=== PATIENT | male | born 1985 ===

== ENCOUNTER 2024-03-15 13:06 | Emergency (ER) | payer BC, SELFPAY ==
[2024-03-15] VITALS (27 sets, daily range): BP systolic 108–147; BP diastolic 48–108; PULSE 98–120; RESP 16–20; TEMP 36.1; O2SAT 89–96; BMI 35.6
[2024-03-15] MEDS: KETOROLAC 15 MG/ML inj IVP (15:16)
[2024-03-15] MEDS: 0.9 % SODIUM CHLORIDE 500 ML 500 ML IV (15:16)
[2024-03-15] MEDS: LORazepam 2 MG/ML inj 1 MG IVP (15:17)
[2024-03-15 15:29] LABS: Glucose, Point-of-Care* 113 mg/dl (60-115)
[2024-03-15 15:37] LABS: Chloride* 98 mmol/L (96-114); Sodium* 137 mmol/L (135-149)
[2024-03-15 15:38] LABS: Albumin* 5.2 g/dL (3.3-5.0); Basophils Percent Auto 0.5 % (0.0-3.0); Eosinophils Percent Auto 1.7 % (0.0-7.0); Hematocrit 48.4 % (37.0-53.0); Immature Granulocytes Pct Auto 1.5 %; Mean Corpuscular HGB Conc 33 gm/dL (32-36); Mean Corpuscular Hemoglobin 27 pg (26-34); Mean Corpuscular Volume 81 fL (80-100); Monocytes Percent Auto 7.6 % (0.0-11.0); Neutrophils Percent Auto 70.7 % (42.0-72.0); Platelet Count* 412 K/uL (140-440); RDW Coefficient of Variation % 13.2 % (11.5-15.5); Red Blood Count 5.96 m/uL (4.30-5.90); White Blood Count* 12.59 K/uL (4.50-11.00)
[2024-03-15 15:39] LABS: Potassium* 4.3 mmol/L (3.6-5.1)
[2024-03-15 15:41] LABS: Alkaline Phosphatase* 101 U/L (40-150); Anion Gap 14 mEq/L (7-15); Aspartate Amino Transferase* 39 U/L (12-35); Bilirubin Direct* 0.4 mg/dL (0.0-0.5); Bilirubin Total* 1.3 mg/dL (0.1-1.5); Blood Urea Nitrogen* 18 mg/dL (5-24); Carbon Dioxide* 25 mmol/L (20-32); Est. Creatinine Clearance* 110.97; Estimated Glomerular Filt Rate 98 ml/min; Total Protein* 8.7 g/dL (6.0-8.3)
[2024-03-15 15:42] LABS: Alanine Aminotransferase* 68 U/L (4-50); Calcium* 9.9 mg/dL (8.4-10.6); Glucose* 109 mg/dL (60-115); Magnesium* 2.2 mg/dL (1.5-2.6)
[2024-03-15 15:44] LABS: Lactate Sepsis w/Reflex* 1.6 mmol/L (0.5-1.9)
[2024-03-15 15:44] LABS: Slide Review Reflex No
[2024-03-15 15:45] LABS: C Reactive Protein* < 0.5 mg/dL (0.5-1.0)
[2024-03-15 16:14] LABS: D Dimer Quantitative* < 0.27 ug/ml (0.00-0.50)
[2024-03-15 16:27] LABS: Erythrocyte SedimentationRate* 7 mm/hr (2-15)
--- NOTE | 2024-03-15 17:39 | ED.GENADULT ---
HPI - General Adult General Date Seen: 03/15/24 Chief complaint: Unspecified Complaint, Adult Stated complaint: body aches/spasmn Time Seen by Provider: 03/15/24 14:39 History of Present Illness HPI narrative: Patient is a 38-year-old male who says for the past week or so he has been having muscle cramps and various parts of his body to include his legs, sides of his abdomen and back. These feel like a charley horses but in various parts of his body, like the muscle seizes up. He is also feeling very thirsty, he said he drink 4 L of water today and he has been trying to drink a lot of Pedialyte and water every day because he feels so thirsty. He has not had any swelling in his legs, he has not had any fever cough, has not felt short of breath, has not had any chest pain, has not had any weakness or numbness, has not had headache, has not had viral symptoms. He says he came in here because he was on a job site which was in [place] when he got particularly bad cramps. He lives in [place]. He does not smoke, notes rare alcohol use, denies any substances. Medical history includes high blood pressure. Related Data Home Medications ?Medication ?Instructions ?Recorded ?Confirmed amlodipine .ROUTE 03/15/24 lisinopril 20 mg tablet 20 mg PO DAILY 03/15/24 03/15/24 spironolactone .ROUTE 03/15/24 Allergies Allergy/AdvReac Type Severity Reaction Status Date / Time nickel Allergy Unknown Verified 03/15/24 14:36 quinine Allergy Unknown Verified 03/15/24 14:36 Review of Systems Status of ROS: Reports: 10 or more systems reviewed and unremarkable except as noted in History and below Exam Narrative: Exam Narrative: Vital signs reviewed In general, alert, nontoxic male. Breathing easily. Looks comfortable. Head: Normocephalic, atraumatic. Eyes: Sclera clear. Pupils equal and reactive. ENT: Mucous membranes moist. Neck: Supple without adenopathy. Heart: Regular rate and rhythm without murmur. Lungs: Clear. No increased work of breathing, crackles or wheezes. Abdomen: Soft, nontender to palpation. Extremities: Well perfused, pulses intact. No significant edema. No erythema. Neurologic: Alert, conversant. Speech fluent, face symmetric. Moves all extremities equally. Skin: Warm, dry well perfused. No rashes. Affect: Anxious. Const: Vital Signs, click to edit/add: Vital Signs - 24 hr 03/15/24 14:31 03/15/24 15:34 03/15/24 15:35 Temperature 96.9 F L Pulse Rate 108 H 109 H Pulse Rate [Pulse Oximeter] 120 H Respiratory Rate 16 Blood Pressure 126/75 Blood Pressure [Ri ght Upper Arm] 125/93 H Pulse Oximetry 96 91 93 Oxygen Delivery Me thod Room Air 03/15/24 15:40 03/15/24 15:42 03/15/24 15:45 Temperature Pulse Rate 109 H 105 H 108 H Pulse Rate [Pulse Oximeter] Respiratory Rate Blood Pressure 131/108 H Blood Pressure [Ri ght Upper Arm] Pulse Oximetry 92 92 93 Oxygen Delivery Me thod 03/15/24 15:47 03/15/24 15:52 03/15/24 15:58 Temperature Pulse Rate 109 H 100 110 H Pulse Rate [Pulse Oximeter] Respiratory Rate Blood Pressure 136/94 H 147/81 H 124/80 Blood Pressure [Ri ght Upper Arm] Pulse Oximetry 93 93 94 Oxygen Delivery Me thod 03/15/24 16:00 03/15/24 16:02 03/15/24 16:07 Temperature Pulse Rate 105 H 106 H 105 H Pulse Rate [Pulse Oximeter] Respiratory Rate Blood Pressure 123/78 112/76 Blood Pressure [Ri ght Upper Arm] Pulse Oximetry 95 92 92 Oxygen Delivery Me thod 03/15/24 16:12 03/15/24 16:15 03/15/24 16:17 Temperature Pulse Rate 99 99 106 H Pulse Rate [Pulse Oximeter] Respiratory Rate Blood Pressure 126/77 134/83 Blood Pressure [Ri ght Upper Arm] Pulse Oximetry 91 89 93 Oxygen Delivery Me thod 03/15/24 16:23 03/15/24 16:24 03/15/24 16:27 Temperature Pulse Rate 106 H 107 H 101 H Pulse Rate [Pulse Oximeter] Respiratory Rate Blood Pressure 118/77 115/48 L Blood Pressure [Ri ght Upper Arm] Pulse Oximetry 92 94 93 Oxygen Delivery Me thod 03/15/24 16:30 03/15/24 16:31 03/15/24 16:37 Temperature Pulse Rate 98 101 H 103 H Pulse Rate [Pulse Oximeter] Respiratory Rate 20 Blood Pressure 108/61 123/59 L Blood Pressure [Ri ght Upper Arm] Pulse Oximetry 93 92 93 Oxygen Delivery Me thod 03/15/24 16:45 03/15/24 16:48 03/15/24 16:52 Temperature Pulse Rate 103 H 99 102 H Pulse Rate [Pulse Oximeter] Respiratory Rate Blood Pressure 122/63 116/63 Blood Pressure [Ri ght Upper Arm] Pulse Oximetry 92 92 92 Oxygen Delivery Me thod 03/15/24 16:57 03/15/24 17:00 03/15/24 17:03 Temperature Pulse Rate 100 99 Pulse Rate [Pulse Oximeter] Respiratory Rate Blood Pressure 125/77 117/91 H Blood Pressure [Ri ght Upper Arm] Pulse Oximetry 93 93 Oxygen Delivery Me thod Course Course ED Course: We placed an IV here, gave some normal saline IV, as well as Toradol and a mg of Ativan IV. He tells me that within moments of the IV medications all of his cramping resolved and he feels much better. Labs are notable for a mildly elevated white blood cell count of 12.6, of undetermined significance. Hemoglobin and platelets are normal. His D-dimer was less than 0.27 metabolic panel is entirely normal, I did check a point of care glucose which was 113, metabolic panel shows glucose of 109. Lactate is 1.6, normal gap of 14, normal magnesium of 2.2. Minimal elevations of AST and ALT of 39 and 68. CRP is less than 0.5. TSH is normal. He had an EKG on arrival which showed a sinus tachycardia, no significant ST segment changes, unremarkable T-waves. Etiology of his symptoms is unclear at this time. Fortunately he is feeling significantly better. I prescribed Flexeril for him, recommended an anti-inflammatory like ibuprofen next few days. He has an appointment upcoming with his primary doctor, recheck at that time. Return for new or worsening symptoms. Vital Signs Vital signs: Initial Vital Signs Temperature 96.9 F L 03/15/24 14:31 Temperature Source Temporal Artery Scan 03/15/24 14:31 Pulse Rate 120 H 03/15/24 14:31 Respiratory Rate 16 03/15/24 14:31 Blood Pressure 125/93 H 03/15/24 14:31 Blood Pressure Mean 103 03/15/24 14:31 Blood Pressure Position Sitting 03/15/24 14:31 Pulse Oximetry 96 03/15/24 14:31 Oxygen Delivery Method Room Air 03/15/24 14:31 Vital Signs Temperature 96.9 F L 03/15/24 14:31 Pulse Rate 120 H 03/15/24 14:31 Respiratory Rate 16 03/15/24 14:31 Blood Pressure 125/93 H 03/15/24 14:31 Pulse Oximetry 96 03/15/24 14:31 Oxygen Delivery Method Room Air 03/15/24 14:31 Temperature 96.9 F L 03/15/24 14:31 Pulse Rate 99 03/15/24 17:00 Respiratory Rate 20 03/15/24 16:37 Blood Pressure 117/91 H 03/15/24 17:03 Pulse Oximetry 93 03/15/24 17:00 Oxygen Delivery Method Room Air 03/15/24 14:31 Medications Administered Medications: Discontinued Medications Generic Name Dose Route Start Last Admin Trade Name Freq PRN Reason Stop Dose Admin Sodium Chloride 500 mls @ 500 mls/hr 03/15/24 14:45 03/15/24 16:00 0.9 % Sodium Chloride 500 Ml IV 03/15/24 15:44 Infused .Q1H ONE Infusion Ketorolac Tromethamine 15 mg 03/15/24 14:45 03/15/24 15:16 Ketorolac 15 Mg/Ml Inj IVP 03/15/24 14:46 15 mg ONCE ONE Administration Lorazepam 1 mg 03/15/24 14:45 03/15/24 15:17 Lorazepam 2 Mg/Ml Inj IVP 03/15/24 14:46 1 mg ONCE ONE Administration Medical Decision Making Lab Data Labs: Lab Results 03/15/24 03/15/24 03/15/24 Range/Units 14:45 14:46 15:00 WBC 12.59 H (4.50-11.00) K/uL RBC 5.96 H (4.30-5.90) m/uL Hgb 16.0 (13.5-17.5) gm/dL Hct 48.4 (37.0-53.0) % MCV 81 (80-100) fL MCH 27 (26-34) pg MCHC 33 (32-36) gm/dL RDW Coeff of Lesli 13.2 (11.5-15.5) % Plt Count 412 (140-440) K/uL Neut % (Auto) 70.7 (42.0-72.0) % Lymph % (Auto) 18.0 L (20-44) % [place] % (Auto) 7.6 (0.0-11.0) % Eos % (Auto) 1.7 (0.0-7.0) % Baso % (Auto) 0.5 (0.0-3.0) % Neut # (Auto) 8.90 H (1.7-7.0) K/uL Lymph # (Auto) 2.30 (0.90-2.90) K/uL [place] # (Auto) 1.00 H (0.00-0.90) K/UL Eos # (Auto) 0.20 (0.00-0.50) K/uL Baso # (Auto) 0.10 (0.00-0.30) K/uL Abs Immat Gran (auto) 0.20 (0.00-0.30) K/uL Imm/Tot Granulo (auto) 1.5 % ESR 7 (2-15) mm/hr D-Dimer Quant (PE/DVT) < 0.27 (0.00-0.50) ug/ml Sodium 137 (135-149) mmol/L Potassium 4.3 (3.6-5.1) mmol/L Chloride 98 (96-114) mmol/L Carbon Dioxide 25 (20-32) mmol/L Anion Gap 14 (7-15) mEq/L BUN 18 (5-24) mg/dL Creatinine 1.0 (0.5-1.5) mg/dL Estimated Creat Clear 110.97 Estimated GFR 98 ml/min Glucose 109 (60-115) mg/dL Lactate 1.6 (0.5-1.9) mmol/L Calcium 9.9 (8.4-10.6) mg/dL Magnesium 2.2 (1.5-2.6) mg/dL Total Bilirubin 1.3 (0.1-1.5) mg/dL Direct Bilirubin 0.4 (0.0-0.5) mg/dL AST 39 H (12-35) U/L ALT 68 H (4-50) U/L Alkaline Phosphatase 101 (40-150) U/L C-Reactive Protein < 0.5 L (0.5-1.0) mg/dL Total Protein 8.7 H (6.0-8.3) g/dL Albumin 5.2 H (3.3-5.0) g/dL TSH 2.520 (0.270-4.200) uIU/mL POC Glucose 113 (60-115) mg/dl Discharge Plan Discharge Clinical Impression: Cramps, muscle, general Patient Disposition: Home, Self-Care Condition: Improved Instructions: Muscle Cramp (ED) Additional Instructions: Follow-up as planned with your doctor on the . I would recommend taking some ibuprofen, 400 mg 3 times daily with food for a few days, and then also use the muscle relaxer that I prescribed, Flexeril, as needed. If you are worsening, have new symptoms such as fevers, unusual rashes, vomiting, significant shortness of breath etcetera, return to the ER at any time. Prescriptions: No Action lisinopril 20 mg tablet 20 mg PO DAILY spironolactone .ROUTE amlodipine .ROUTE Follow Up/Referrals: Provider,Not a Local [Primary Care Provider] - Stand Alone Forms: [facility] [place] Info Instructions
== END 2024-03-15 17:12 | disposition home or self-care (01) ==
PROVIDERS: Emergency Provider Emergency Medicine
DX: R25.2 Cramp and spasm (principal)
CPT/HCPCS: 36415; 80048; 80076; 82947; 83605; 83735; 84443; 85025; 85379; 85651; 86140; 93005; 94761; 99284; J1885; J2060; J7030